=== PATIENT | male | born 1975 | race Caucasian/White ===

== ENCOUNTER 2017-11-22 14:17 | Emergency (ER) | payer MEDICAID ==
[2017-11-22 14:33] VITALS: BP 151/89
[2017-11-22] MEDS ORDERED: Sodium Chloride 0.9% 10 ML Syringe FLUSH PRN (15:11)
[2017-11-22] MEDS ORDERED: LORazepam 2 MG/ML SDV IVPUSH ONE ×2 (15:28→16:20)
[2017-11-22] MEDS ORDERED: Sodium Chloride 0.9% 1,000 ML IV SCH (15:30)
--- NOTE | 2017-11-22 15:30 | EDM.PDOC ---
ED HPI GENERAL MEDICAL PROBLEM - General Chief Complaint: Headache Stated Complaint: HEADACHE Time Seen by Provider: 11/22/17 14:52 Source of Information: Reports: Family (). Denies: Patient History Limitations: Reports: Altered Mental Status (Incomprehensible speech. Does not follow commands.), Uncooperative - History of Present Illness INITIAL COMMENTS - FREE TEXT/NARRATIVE: Patient is a 42-year-old male who presents to the ED with his spouse over concerns of altered mental status, severe headache, and severe right-sided neck pain. stated the patient's mental status has significantly changed over the past few minutes with admission to the ED. Patient has a history of anxiety with anxiety attacks in the past. Patient's presentation is completely different from previous episodes. states last time she saw the patient was 11:00 this morning. Patient has been having complaining of severe headache and right- sided neck discomfort after being adjusted by a chiropractor yesterday. Initially it was stated the adjustment was 4 days ago by patient's spouse. states the patient's headache was getting worse along with the right-sided neck discomfort. Patient had stated he never had headaches like this in the past. states the patient returned from the shop after working on a vehicle. Last known well time was per mother at 1:00 this afternoon. Patient at that time complained of headache as well and right-sided neck discomfort. Upon returning home patient complained of worsening headache. He was slightly nauseated with no emesis. He was having a hard time remembering recent events and coming up with words. states the patient cannot remember who the president was, year , and the name of the chiropractor that treated him. initially thought it was anxiety induced but stated it was different than previous attacks. She gave the patient clonazepam prior to coming to the ED for anxiety. Patient had also mentioned to the that his face felt numb and had left arm weakness. The clonazepam per did nothing. stated the patient recently stopped the clonazepam with starting cymbalta 3 weeks ago. Patient had been doing well since. Head Pain Score (Numeric/FACES): 10 - Related Data Allergies Allergy/AdvReac Type Severity Reaction Status Date / Time No Known Allergies Allergy Verified 02/15/16 15:14 Home Meds: Home Meds ClonazePAM [KlonoPIN] 1 mg PO TID 09/08/15 [History] DULoxetine [Cymbalta] 0 mg PO DAILY 11/22/17 [History] Multivitamin [One Daily] 1 tab PO DAILY 11/22/17 [History] Past Medical History Psychiatric History: Reports: Anxiety, Depression - Past Surgical History HEENT Surgical History: Reports: Tonsillectomy Social & Family History - Tobacco Use Smoking Status *Q: Current Every Day Smoker Years of Tobacco use: 20 Packs/Tins Daily: 1 - Caffeine Use Caffeine Use: Reports: Tea - Recreational Drug Use Recreational Drug Type: Reports: Other (see below) Other Recreational Drug Type: cannibus oil drops ED ROS GENERAL - Review of Systems Review Of Systems: Unable To Obtain - Physical Exam Exam: See Below Exam Limited By: Altered Mental Status (Incomprehensible speech. Does not follow commands.) General Appearance: Alert, Anxious, Moderate Distress Eye Exam: Bilateral Eye: PERRL, Other (Patient does not follow commands and is not able to test EOMs and nystagmus.) Ears: Other (Unknown) Nose: Normal Inspection Throat/Mouth: No Airway Compromise. No: Normal Voice (Incomprehensible speech) , Evidence of Tongue Biting Head Exam: Atraumatic, Normocephalic Neck: Normal Inspection, Supple, Full Range of Motion Respiratory/Chest: No Respiratory Distress, Lungs Clear, Normal Breath Sounds, No Accessory Muscle Use Cardiovascular: Normal Peripheral Pulses, Regular Rate, Rhythm, No Murmur GI/Abdominal: Normal Bowel Sounds, Soft, Non-Tender, No Organomegaly, No Distention Neuro Exam (Abbreviated): Alert, Disoriented, Other (Patient moves all extremities. Incomprehensible speech noted. Does not follow commands. Cannot conduct a full neurological exam.). No: CN II-XII Intact (Unable to follow commands. ) Back Exam: Normal Inspection Extremities: Normal Inspection Psychiatric: Other (Altered mental status, confused, anxious. ) Skin Exam: Warm, Dry, Intact, Normal Color Course - Vital Signs Last Recorded V/S: Last Vital Signs Temp 96.7 F 11/22/17 14:31 Pulse 78 11/22/17 14:31 Resp 20 11/22/17 14:31 BP 151/89 H 11/22/17 14:31 Pulse Ox 99 11/22/17 14:31 - Orders/Labs/Meds Labs: Laboratory Tests 0911/22/17 11/22/17 Range/Units 15:20 15:20 15:20 WBC 9.98 H (4.23-9.07) K/mm3 RBC 5.51 (4.63-6.08) M/mm3 Hgb 15.9 (13.7-17.5) gm/L Hct 45.1 (40.1-51.0) % MCV 81.9 (79.0-92.2) fl MCH 28.9 (25.7-32.2) pg MCHC 35.3 (32.2-35.5) g/dl RDW Std Deviation 38.3 (35.1-43.9) fL Plt Count 280 (163-337) K/mm3 MPV 10.3 (9.4-12.3) fl Neutrophils % (Manual) 75 H (40-60) % Band Neutrophils % 0 (0-10) % Lymphocytes % (Manual) 18 L (20-40) % Atypical Lymphs % 0 % Monocytes % (Manual) 4 (2-10) % Eosinophils % (Manual) 2 (0.8-7.0) % Basophils % (Manual) 1 (0.2-1.2) Platelet Estimate Adequate Plt Morphology Comment Normal RBC Morph Comment Normal PT 10.0 (9.5-12.1) SECONDS INR < 0.93 APTT 30 (24-31) SECONDS Sodium 133 L (136-145) mEq/L Potassium 3.3 L (3.5-5.1) mEq/L Chloride 98 (98-107) mEq/L Carbon Dioxide 24 (21-32) mEq/L Anion Gap 14.3 (5-15) BUN 13 (7-18) mg/dL Creatinine 1.3 (0.7-1.3) mg/dL Est Cr Clr Drug Dosing 87.82 mL/min Estimated GFR (MDRD) > 60 (>60) mL/min BUN/Creatinine Ratio 10.0 L (14-18) Glucose 136 H (74-106) mg/dL Calcium 10.3 H (8.5-10.1) mg/dL Total Bilirubin 0.6 (0.2-1.0) mg/dL AST 59 H (15-37) U/L ALT 91 H (16-63) U/L Alkaline Phosphatase 140 H (46-116) U/L Total Protein 9.1 H (6.4-8.2) g/dl Albumin 4.9 (3.4-5.0) g/dl Globulin 4.2 gm/dL Albumin/Globulin Ratio 1.2 (1-2) TSH 3rd Generation 2.326 (0.358-3.74) uIU/mL Ethyl Alcohol (0.00) gm% 11/22/17 Range/Units 15:20 WBC (4.23-9.07) K/mm3 RBC (4.63-6.08) M/mm3 Hgb (13.7-17.5) gm/L Hct (40.1-51.0) % MCV (79.0-92.2) fl MCH (25.7-32.2) pg MCHC (32.2-35.5) g/dl RDW Std Deviation (35.1-43.9) fL Plt Count (163-337) K/mm3 MPV (9.4-12.3) fl Neutrophils % (Manual) (40-60) % Band Neutrophils % (0-10) % Lymphocytes % (Manual) (20-40) % Atypical Lymphs % % Monocytes % (Manual) (2-10) % Eosinophils % (Manual) (0.8-7.0) % Basophils % (Manual) (0.2-1.2) Platelet Estimate Plt Morphology Comment RBC Morph Comment PT (9.5-12.1) SECONDS INR APTT (24-31) SECONDS Sodium (136-145) mEq/L Potassium (3.5-5.1) mEq/L Chloride (98-107) mEq/L Carbon Dioxide (21-32) mEq/L Anion Gap (5-15) BUN (7-18) mg/dL Creatinine (0.7-1.3) mg/dL Est Cr Clr Drug Dosing mL/min Estimated GFR (MDRD) (>60) mL/min BUN/Creatinine Ratio (14-18) Glucose (74-106) mg/dL Calcium (8.5-10.1) mg/dL Total Bilirubin (0.2-1.0) mg/dL AST (15-37) U/L ALT (16-63) U/L Alkaline Phosphatase (46-116) U/L Total Protein (6.4-8.2) g/dl Albumin (3.4-5.0) g/dl Globulin gm/dL Albumin/Globulin Ratio (1-2) TSH 3rd Generation (0.358-3.74) uIU/mL Ethyl Alcohol 0.00 (0.00) gm% Meds: Medications Discontinued Medications Generic Name Dose Route Start Last Admin Trade Name Fengq PRN Reason Stop Dose Admin Alteplase, Recombinant Confirm 11/22/17 15:53 11/22/17 16:21 Activase Administered 11/22/17 15:54 Not Given Dose 100 mg .ROUTE .STK-MED ONE Alteplase, Recombinant 7.7 mg 11/22/17 16:00 11/22/17 16:02 Activase IVPUSH 11/22/17 16:01 7.7 mg .BOLUS ONE Administration Alteplase, Recombinant 69.6 mg 11/22/17 16:00 11/22/17 16:05 Activase IV 11/22/17 16:01 69.6 mg .BOLUS ONE Administration Sodium Chloride 1,000 mls @ 125 mls/hr 11/22/17 15:30 Normal Saline IV ASDIRECTED RYAN Lorazepam 0.5 mg 11/22/17 15:28 11/22/17 16:27 Ativan IVPUSH 11/22/17 15:29 Not Given ONETIME ONE Lorazepam 1 mg 11/22/17 16:20 11/22/17 16:20 Ativan IVPUSH 11/22/17 16:21 1 mg ONETIME ONE Administration Sodium Chloride 10 ml 11/22/17 15:11 Saline Flush FLUSH ASDIRECTED PRN Keep Vein Open Tenecteplase 50 mg 11/22/17 15:44 11/22/17 16:08 Tnkase IV 11/22/17 15:45 Not Given ONETIME ONE Protocol - Re-Assessments/Exams Free Text/Narrative Re-Assessment/Exam: Upon initial examination patient had incomprehensible speech, moving all extremities, not able to follow commands, and vital signs were stable. Unable to perform stroke testing. Nursing staff states NIH Scale is a 4. Patient does not follow commands. Stroke code was called. The patient was moved to CT for immediate imaging. Upon returning from CT the patient's speech was more clear but he was still disoriented and was not following commands. He continued to move all extremities. There was no slurred speech at this time and/or facial droop. He was not cooperative with attempting neuro evaluation. Again discussed with and mother who is present if current mental status is similar to previous anxiety attacks and they said no. Patient's mental status is completely abnormal. Family states patient uses CPD oils on intermittent basis. They did not elaborate why. Patient was moved to one of the trauma bays for one on one nursings care. Images were sent to [facility]. 1533, I did speak with Dr. Villarreal, Neurologists jewelry consultant. He has reviewed the images. Discussed patient's past medical history, recent events,and current signs and symptoms with him in great detail. He stated this could be related to a stroke although unlikely since patient does not have a significant past medical history. Due to the patient's age and low risk for complications with receiving TPA he recommended pushing this medication and transporting the patient to their facility for further evaluation and treatment. I have ordered the TPA and completed the weight based form. Dr. Villarreal believes the benefits of treating for a stroke outweighs the risk of not doing so. It is especially concerning with recent symptoms occurring after chiropractor adjustment. CT of the head impression: Motion artifact. Within this limitation, nothing acute is appreciated on noncontrast head CT exam. Inclusion and exclusion criteria obtained by Cory Vargas PA-C. Patient had no absolute or relative contraindications. I have discussed the risks, benefits, and alternative treatments with and mother. Risks being catastrophic bleeding within the brain or body. They both have voiced understanding and agree to proceed with administration of medication. 1340 Dr. Soliman has evaluated the patient has well. Patient is moving extremities but is very disoriented. He continues to not follow commands and or make any sense with speaking. Dr. Soliman is not completely convinced this is a stroke. Agrees with differential diagnosis of stroke, pscyh, and or drug related. Suggested following recommendations by Dr. Villarreal. It is unclear at this point if this is stroke, psych, or tox related. UA has not been able to be obtained. We are approaching the 3 hr benchmark for administration of TPA. 1345 I again discussed risks, benefits, and alternative treatments with the and mother. They have elected to proceed. Patients mentation is unchanged. Still moving extremities but very confused. Departure - Departure Time of Disposition: 16:35 Disposition: DC/Tfer to Acute Hospital 02 Condition: Good Clinical Impression: Concern about stroke without diagnosis Altered mental status Qualifiers: Altered mental status type: unspecified Qualified Code(s): R41.82 - Altered mental status, unspecified - Discharge Information Referrals: PCP,Unknown [Ordering Only Provider] - Forms: ED Department Discharge
[2017-11-22] MEDS ORDERED: Tenecteplase 50 MG Kit IV ONE (15:44)
--- NOTE | 2017-11-25 07:45 | CT ---
Head CT Technique: Multiple axial sections through the brain were obtained. Intravenous contrast was not utilized. Findings: Study was repeated due to motion artifact on the original study. Persisting motion artifact is noted on repeat exam. Findings: Ventricles along with basal cisterns and sulci over the convexities are within normal limits for the patient's age. No abnormal parenchymal densities are seen. No evidence of intracranial hemorrhage. No midline shift or mass effect is seen. Bone window settings were reviewed which show no acute calvarial abnormality. Visualized sinuses are clear. Impression: 1. Motion artifact. Within this limitation, nothing acute is appreciated on noncontrast head CT exam. Diagnostic code #2 MTDD
== END 2017-11-22 16:35 ==
LOC: JD.ED 14:17
DX: R41.82 Altered mental status, unspecified (principal); F17.210 Nicotine dependence, cigarettes, uncomplicated; F41.9 Anxiety disorder, unspecified; F32.9 Major depressive disorder, single episode, unspecified; Z79.899 Other long term (current) drug therapy
CPT/HCPCS: 36415; 70450; 80053; 84443; 85007; 85027; 85610; 85730; 93005; 96365; 96375; 99285; G0480; J2060; J2997

== ENCOUNTER 2022-09-30 00:22 | Emergency (ER) | payer MEDICAID ==
[2022-09-30 00:58] LABS: BASOPHILS ABSOLUTE AUTO 0.05 K/mm3 (0.01-0.08); BASOPHILS PERCENT AUTO 0.8 % (0.1-1.2); EOSINOPHILS ABSOLUTE AUTO 0.17 K/mm3 (0.04-0.54); EOSINOPHILS PERCENT AUTO 2.6 (0.8-7.0); HEMATOCRIT 39.2 % (40.1-51.0); HEMOGLOBIN 13.8 gm/dl (13.7-17.5); IMMATURE GRAN ABSOLUTE AUTO 0.01 K/mm3 (0.00-0.10); IMMATURE GRAN PERCENT AUTO 0.2 % (<=1.0); LYMPHOCYTES PERCENT AUTO 59.3 % (21.8-53.1); MEAN CORPUSCULAR HEMOGLOBIN 30.1 pg (25.7-32.2); MEAN CORPUSCULAR HGB CONC 35.2 g/dl (32.2-35.5); MEAN CORPUSCULAR VOLUME 85.4 fl (79.0-92.2); MEAN PLATELET VOLUME 10.7 fl (9.4-12.3); MONOCYTES ABSOLUTE AUTO 0.48 K/mm3 (0.30-0.82); MONOCYTES PERCENT AUTO 7.3 % (5.3-12.2); NEUTROPHILS ABSOLUTE AUTO 1.97 K/mm3 (1.78-5.38); NEUTROPHILS PERCENT AUTO 29.8 % (34.0-67.9); PLATELET COUNT,PLT 210 K/mm3 (163-337); RED BLOOD CELL COUNT 4.59 M/mm3 (4.63-6.08); WHITE BLOOD CELL COUNT,WBC 6.58 K/mm3 (4.23-9.07)
[2022-09-30 01:16] LABS: BASE EXCESS ARTERIAL 0.7 (-2-2.0); BICARBONATE,ARTERIAL 25.9 meq/L (22.0-26.0); O2 SATURATION ARTERIAL 94.3 % (96.0-97.0); PCO2 ARTERIAL 45.7 mmHg (35.0-45.0)
[2022-09-30 01:19] LABS: A/G RATIO 1.3 (1-2); ANION GAP 11.3 (5-15); BILIRUBIN TOTAL 0.4 mg/dL (0.2-1.0); CREATININE 1.2 mg/dL (0.7-1.3); EST CRCL DRUG DOSING (CG) 89.03 mL/min; MAGNESIUM 1.8 mg/dL (1.8-2.4); POTASSIUM,K 3.3 mEq/L (3.5-5.1); PROTEIN TOTAL,TP 7.1 g/dl (6.4-8.2); TSH 3.141 uIU/mL (0.358-3.74)
[2022-09-30 01:23] LABS: BARBITURATE SCREEN,URINE NEGATIVE (CUTOFF=200); BENZODIAZEPINES SCREEN,URINE PRESUMPTIVE POSITIVE (CUTOFF=150); BUPRENORPHINE SCREEN,URINE NEGATIVE (CUTOFF=10); METHADONE SCREEN, URINE NEGATIVE (CUT0FF=200); METHAMPHETAMINES SCREEN, URINE NEGATIVE (CUTOFF=500); OXYCODONE SCREEN,URINE NEGATIVE (CUT0FF=100); PROPOXYPHENE SCREEN,URINE NEGATIVE (CUTOFF=300); THC SCREEN,URINE 20 NG/ML NEGATIVE (CUTOFF=50)
[2022-09-30 01:29] LABS: AMPHETAMINES SCREEN, URINE PRESUMPTIVE POSITIVE (CUTOFF=500)
[2022-09-30 02:23] VITALS: BP 114/82; PULSE 54
== END 2022-09-30 02:20 | disposition home or self-care (01) ==
LOC: JD.ED 00:22
DX: I49.3 Ventricular premature depolarization (principal); Z86.16 Personal history of COVID-19; Z87.891 Personal history of nicotine dependence
CPT/HCPCS: 36415; 36600; 71046; 71046-26; 80053; 80306; 82803; 83735; 84443; 84484; 85025; 85379; 93005; 93010; 99282; 99285